=== PATIENT | male | born 1955 | race Two or more races ===

== ENCOUNTER 2019-02-17 12:13 | Emergency (ER) | payer MEDICARE, MEDICAID ==
[~2019-02-17] VITALS: Ht 165.1 cm; Wt 102.1 kg
[2019-02-17 16:15] VITALS: BP 166/87
== END 2019-02-17 16:34 | disposition home or self-care (01) ==
LOC: ER 12:13
DX: S76.012A Strain of muscle, fascia and tendon of left hip, initial encounter (principal); S86.912A Strain of unspecified muscle(s) and tendon(s) at lower leg level, left leg, initial encounter; H66.91 Otitis media, unspecified, right ear; W18.39XA Other fall on same level, initial encounter; Y93.89 Activity, other specified; Y92.89 Other specified places as the place of occurrence of the external cause; Y99.8 Other external cause status
CPT/HCPCS: 72170; 73501; 73562